=== PATIENT | female | born 1995 | race Caucasian/White ===

== ENCOUNTER 2022-12-10 05:41 | Inpatient (IN) | payer BC ==
[2022-12-10 06:10] VITALS: BMI 26.6
[2022-12-10] MEDS ORDERED: hydrALAZINE 20 MG/ML VIAL SLOW IVP PRN ×2 (06:35→22:05)
[2022-12-10] MEDS ORDERED: Lidocaine 1% (PF) 30 ML VIAL SC PRN (06:35)
[2022-12-10] MEDS ORDERED: Promethazine HCl 25 MG/ML VIAL IM PRN ×2 (06:35→07:46)
[2022-12-10] MEDS ORDERED: Ondansetron PF 4 MG/2 ML Vial IVP PRN ×2 (06:35→07:46)
[2022-12-10] MEDS ORDERED: Ibuprofen 800 MG TAB PO PRN (06:41)
[2022-12-10] MEDS ORDERED: Diphenoxylate HCl/Atropine Tablet PO PRN (06:41)
[2022-12-10] MEDS ORDERED: Butorphanol Tartrate 1 MG/ML VIAL SLOW IVP PRN (06:41)
[2022-12-10] MEDS ORDERED: Methylergonovine 0.2 MG/ML VIAL IM PRN (06:41)
[2022-12-10] MEDS ORDERED: Acetaminophen 500 MG TAB PO PRN (06:41)
[2022-12-10] MEDS ORDERED: Misoprostol 200 MCG TAB PR PRN (06:41)
[2022-12-10] MEDS ORDERED: Carboprost 250 MCG/ML AMP IM PRN (06:41)
[2022-12-10] MEDS ORDERED: NS w/ Oxytocin 30 units 500 ML IV SCH ×3 (06:45)
[2022-12-10] MEDS ORDERED: Fentanyl 2 mcg/Bup 0.1% Cadd 100 ML ONE (07:00)
[2022-12-10 07:01] LABS: Hemoglobin 12.4 g/dL (12.0-15.5); Mean Corpuscular Hemoglobin 31.4 pg (27.0-33.0); Mean Corpuscular Volume 89.6 fl (81.6-98.3); Mean Platelet Volume 12.6 fl (7.4-10.4); Platelet Count 247 10x3/uL (150-450); RBC Distribution Width 13.2 % (11.5-14.5); Red Blood Cell (RBC) Count 3.95 10x6/uL (3.90-5.03); White Blood Cell (WBC) Count 13.4 10x3/uL (3.5-10.5)
[2022-12-10] MEDS: Lactated Ringer's 1,000 ML IV SCH ×2 (07:31→08:03)
[2022-12-10 07:35] LABS: Hep B Surf Ag - L&D Non-Reactive S/CO (NonReactive); Syphilis Antibody Nonreactive (Nonreactive); Syphilis Antibody Index 0.03 S/CO (<1.00 Non-Reactive)
[2022-12-10] MEDS ORDERED: Moisturizing Cream (Eucerin) 113 GM JAR TOP PRN (07:46)
[2022-12-10] MEDS ORDERED: ePHEDrine Sulfate 50 MG/10 ML VIAL SLOW IVP PRN (07:46)
[2022-12-10] MEDS ORDERED: diphenhydrAMINE 50 MG/ML VIAL IVP PRN (07:46)
[2022-12-10] MEDS ORDERED: Naloxone HCl 0.4 mg/ml Vial IVP PRN ×2 (07:46)
[2022-12-10] MEDS ORDERED: Lactated Ringer's 500 ML IV PRN (07:46)
[2022-12-10] MEDS ORDERED: Bupivacaine/Epinephrine 0.25% 30 ML VIAL ONE (08:00)
[2022-12-10] MEDS ORDERED: Communication Order-Pharmacy FS SCH (08:00)
[2022-12-10] MEDS: Fentanyl 2 mcg/Bupivacaine 0.1% Cassette 100 ML EPIDURAL SCH ×2 (14:01→20:27)
[2022-12-10] MEDS ORDERED: HYDROcodone/Acetaminophen 5/325 mg Tablet PO PRN (22:05)
[2022-12-10] MEDS ORDERED: Benzocaine-Menthol 82.5 ML CAN TOP PRN (22:05)
[2022-12-10] MEDS ORDERED: Preparation H Ointment 28 GM TUBE PR PRN (22:05)
[2022-12-10] MEDS ORDERED: Lanolin Ointment 7 GM TUBE TOP PRN (22:05)
[2022-12-10] MEDS ORDERED: diphenhydrAMINE 25 MG CAP PO PRN (22:05)
[2022-12-10] MEDS ORDERED: Measles/Mumps/Rubella 10 MCG/0.5 ML VIAL SC ONE (22:05)
[2022-12-10] MEDS ORDERED: Boostrix 0.5 ML (Tdap) VIAL (>/=7 yrs of age) IM ONE (22:05)
[2022-12-10] MEDS ORDERED: Milk Of Magnesia 30 ML UDCUP PO PRN (22:05)
[2022-12-10] MEDS ORDERED: Bisacodyl 10 MG SUPP PR PRN (22:05)
[2022-12-11 06:47] LABS: #Monocytes 1.2 10x3/uL (0.0-1.1); #Neutrophils 15.2 10x3/uL (1.5-8.4); %Basophils 0.2 % (0.0-2.0); %Eosinophils 0.1 % (0.0-6.0); %Lymphocytes 8.9 % (18.0-47.0); %Monocytes 6.6 % (0.0-10.0); %Neutrophils 83.6 % (40.0-75.0); Hemoglobin 10.8 g/dL (12.0-15.5); Mean Corpuscular HGB CONC 33.9 g/dL (32.0-36.0); Mean Corpuscular Hemoglobin 31.1 pg (27.0-33.0); Mean Corpuscular Volume 91.9 fl (81.6-98.3); Mean Platelet Volume 12.7 fl (7.4-10.4); Platelet Count 196 10x3/uL (150-450); RBC Distribution Width 13.3 % (11.5-14.5); Red Blood Cell (RBC) Count 3.47 10x6/uL (3.90-5.03); White Blood Cell (WBC) Count 18.2 10x3/uL (3.5-10.5)
[2022-12-11] MEDS: Ferrous Sulfate 325 MG TAB PO SCH ×2 (08:57→15:04)
[2022-12-11] MEDS: Docusate 100 MG CAP PO SCH ×2 (09:06→20:41)
[2022-12-11] MEDS: Prenatal Vitamin 1 TAB PO SCH (09:06)
[2022-12-11] MEDS: Ibuprofen 800 MG TAB PO PRN ×3 (09:07→20:47)
[2022-12-11] MEDS: Lactated Ringer's 1,000 ML IV SCH (09:59)
[2022-12-11 14:04] LABS: #Neutrophils 12.2 10x3/uL (1.5-8.4); %Basophils 0.3 % (0.0-2.0); %Eosinophils 0.3 % (0.0-6.0); %Lymphocytes 12.4 % (18.0-47.0); %Monocytes 6.4 % (0.0-10.0); %Neutrophils 80.2 % (40.0-75.0); Hemoglobin 10.6 g/dL (12.0-15.5); Mean Corpuscular HGB CONC 34.2 g/dL (32.0-36.0); Mean Corpuscular Hemoglobin 31.7 pg (27.0-33.0); Mean Corpuscular Volume 92.8 fl (81.6-98.3); Mean Platelet Volume 12.7 fl (7.4-10.4); Platelet Count 221 10x3/uL (150-450); RBC Distribution Width 13.8 % (11.5-14.5); Red Blood Cell (RBC) Count 3.34 10x6/uL (3.90-5.03); White Blood Cell (WBC) Count 15.2 10x3/uL (3.5-10.5)
[2022-12-11] MEDS: Acetaminophen 325 MG TAB PO PRN (19:23)
[2022-12-12] MEDS: Ibuprofen 800 MG TAB PO PRN ×2 (05:37→14:03)
[2022-12-12] MEDS: Prenatal Vitamin 1 TAB PO SCH (08:48)
[2022-12-12] MEDS: Docusate 100 MG CAP PO SCH (08:48)
[2022-12-12] MEDS: Acetaminophen 325 MG TAB PO PRN (08:48)
[2022-12-12] MEDS: Ferrous Sulfate 325 MG TAB PO SCH (09:35)
[2022-12-12 11:16] VITALS: BP 127/76; TEMP 98.8
== END 2022-12-12 14:40 | disposition home or self-care (01) | DRG 807 ==
LOC: CSHLD/OP 05:41 → CSHLD 06:25 → CSHPP 12-11 09:20
PROVIDERS: ADMIT Student in an Organized Health Care Education/Training Program; ATTEND Student in an Organized Health Care Education/Training Program
PROC: 10E0XZZ Delivery of Products of Conception, External Approach (ICD-10-PCS; principal; 2022-12-10)
PROC: 0KQM0ZZ Repair Perineum Muscle, Open Approach (ICD-10-PCS; 2022-12-10)
PROC: 0UQMXZZ Repair Vulva, External Approach (ICD-10-PCS; 2022-12-10)
DX: O48.0 Post-term pregnancy (principal); Z37.0 Single live birth; O70.1 Second degree perineal laceration during delivery; Z3A.40 40 weeks gestation of pregnancy; O69.81X0 Labor and delivery complicated by cord around neck, without compression, not applicable or unspecified
CPT/HCPCS: 36415; 51702; 85027; 86780; 86850; 86900; 86901; 87340; 99285; J2210; J2550; J2590; J7120